=== PATIENT | female | born 1960 | race African-American/Black ===

== ENCOUNTER 2021-10-20 22:03 | Emergency (ER) | payer BC ==
[~2021-10-20] VITALS: Ht 152.4 cm; Wt 113.0 kg
[2021-10-20] VITALS (11 sets, daily range): BP systolic 190–235; BP diastolic 106–125
[~2021-10-20 22:03] MED LIST: AMOXICILLIN875 MG PO; BENADRYL 50MG C50 MG PO; ENOXAPARIN40 MG/0.1 SC; HYDROCHLOROT12.5 M1 OR; HYDROCHLOROT25 MG PO; LISINOP/HCTZ1 TA1 PO; LOPRESSOR 550 MG/TAB PO; MEDDOSEPAK PO; METFORMIN1000 MG PO; METOPRL/HCTZ1 TA1 PO; MUPIROCIN2 % NAB; NORCO1 TA1 PO; NORVASC5 MG OR; PEPCID20 MG PO; SMZ-TMP DS1 TAB PO
[2021-10-20 22:52] LABS: IMMATURE GRANULOCYTES 0.1 % (0.0-5.0); MEAN CORPUSCULAR HGB 24.1 pG CALC (26.0-32.0); MEAN CORPUSCULAR HGB CONC 30.4 g/dL CAL (32.0-36.0); NEUT# 4.55 thou/uL (2.00-7.15); RED BLOOD COUNT 5.68 mill/uL (4.20-5.60); RED CELL DISTRI WIDTH 15.3 % (11.5-15.5)
[2021-10-20 22:53] LABS: HEMATOCRIT 45.1 % (37.0-47.0); HEMOGLOBIN 13.7 g/dl (12.0-16.0); MEAN CELL VOLUME 79.4 fL CALC (80.0-100.0)
[2021-10-20 23:04] LABS: ALBUMIN 4.6 g/dL (3.2-5.0); ALKALINE PHOSPHATASE 105 u/l (38-126); ANION GAP 11 (6-22 (CALC)); BUN 13 mg/dL (7-17); BUN/CREATININE RATIO 18 (12-20 (CALC)); CARBON DIOXIDE 28 mmol/l (22-30); CHLORIDE 106 mmol/l (95-108); CREATININE 0.7 mg/dL (0.5-1.0); GFR > 60 ML/MIN (>=60 (CALC)); GFR FOR AFR.AMER. > 60 ML/MIN (>=60 (CALC)); POTASSIUM 3.6 mmol/l (3.5-5.1); SGOT/AST 28 u/l (14-36); SODIUM 142 mmol/l (137-146); TOTAL PROTEIN 8.3 g/dL (6.3-8.2)
[2021-10-20 23:07] LABS: PROTHROMBIN TIME 10.6 SECONDS (9.0-12.5)
[2021-10-20 23:09] LABS: BILIRUBIN, TOTAL 0.5 mg/dL (0.0-1.4)
[2021-10-21] VITALS (13 sets, daily range): BP systolic 163–199; BP diastolic 99–119
[2021-10-21 00:14] LABS: URINE BILIRUBIN - DIPSTICK NEGATIVE (NEGATIVE); URINE BLOOD DIPSTICK LARGE (NEGATIVE); URINE COLOR YELLOW; URINE GLUCOSE - DIPSTICK NEGATIVE (NEGATIVE); URINE KETONE NEGATIVE (NEGATIVE); URINE LEUK ESTERASE TRACE (NEGATIVE); URINE SPECIFIC GRAVITY 1.015; URINE UROBILINOGEN - DIPSTICK 0.2 E.U./dL (0.2)
[2021-10-21 00:16] LABS: URINE NITRITE - DIPSTICK NEGATIVE (Negative)
[2021-10-21 00:17] LABS: URINE PROTEIN - DIPSTICK NEGATIVE (NEG-TRACE)
[2021-10-21 00:19] LABS: URINE BACTERIA FEW hpf; URINE EPITHELIAL CELLS MODERATE EPI/hpf (0-FEW); URINE RBC 25-50 RBC/hpf (0-5)
== END 2021-10-21 00:54 | disposition short-term general hospital (02) | DRG 999 ==
LOC: ED 22:03
PROVIDERS: Emergency Medicine
DX: I63.89 Other cerebral infarction (principal); S06.379A Contusion, laceration, and hemorrhage of cerebellum with loss of consciousness of unspecified duration, initial encounter; R53.1 Weakness; R47.81 Slurred speech; S00.93XA Contusion of unspecified part of head, initial encounter; I10 Essential (primary) hypertension; R29.705 NIHSS score 5; W19.XXXA Unspecified fall, initial encounter; R29.810 Facial weakness
CPT/HCPCS: Q9967

== ENCOUNTER 2021-11-03 23:20 | Emergency (ER) | payer BC ==
[~2021-11-03] VITALS: Ht 152.4 cm; Wt 106.8 kg
[2021-11-03 23:34] VITALS: BP 195/95
[2021-11-03 23:41] VITALS: BP 170/87
[2021-11-03 23:51] VITALS: BP 163/87
[2021-11-04 00:01] VITALS: BP 164/82
[2021-11-04 00:20] VITALS: BP 145/86
[2021-11-04 00:25] LABS: HEMATOCRIT 45.7 % (37.0-47.0); HEMOGLOBIN 13.8 g/dl (12.0-16.0); IMMATURE GRANULOCYTES 0.1 % (0.0-5.0); MEAN CELL VOLUME 79.9 fL CALC (80.0-100.0); MEAN CORPUSCULAR HGB 24.1 pG CALC (26.0-32.0); MEAN CORPUSCULAR HGB CONC 30.2 g/dL CAL (32.0-36.0); NEUT# 3.11 thou/uL (2.00-7.15); RED BLOOD COUNT 5.72 mill/uL (4.20-5.60); RED CELL DISTRI WIDTH 14.8 % (11.5-15.5)
[2021-11-04 00:25] LABS: URINE BILIRUBIN - DIPSTICK NEGATIVE (NEGATIVE); URINE BLOOD DIPSTICK MODERATE (NEGATIVE); URINE COLOR YELLOW; URINE GLUCOSE - DIPSTICK NEGATIVE (NEGATIVE); URINE KETONE NEGATIVE (NEGATIVE); URINE PROTEIN - DIPSTICK NEGATIVE (NEG-TRACE); URINE SPECIFIC GRAVITY 1.015; URINE UROBILINOGEN - DIPSTICK 0.2 E.U./dL (0.2)
[2021-11-04 00:27] LABS: URINE LEUK ESTERASE NEGATIVE (NEGATIVE); URINE NITRITE - DIPSTICK NEGATIVE (Negative)
[2021-11-04 00:31] VITALS: BP 139/80
[2021-11-04 00:31] LABS: URINE RBC 50-100 RBC/hpf (0-5)
[2021-11-04 00:32] LABS: URINE BACTERIA FEW hpf; URINE EPITHELIAL CELLS FEW EPI/hpf (0-FEW)
[2021-11-04 00:37] LABS: ALBUMIN 4.6 g/dL (3.2-5.0); ALKALINE PHOSPHATASE 90 u/l (38-126); ANION GAP 15 (6-22 (CALC)); BILIRUBIN, TOTAL 0.5 mg/dL (0.0-1.4); BUN 22 mg/dL (7-17); BUN/CREATININE RATIO 21 (12-20 (CALC)); CARBON DIOXIDE 26 mmol/l (22-30); CHLORIDE 105 mmol/l (95-108); CREATININE 1.1 mg/dL (0.5-1.0); GFR 51 ML/MIN (>=60 (CALC)); GFR FOR AFR.AMER. > 60 ML/MIN (>=60 (CALC)); POTASSIUM 4.3 mmol/l (3.5-5.1); SGOT/AST 41 u/l (14-36); SODIUM 142 mmol/l (137-146); TOTAL PROTEIN 8.4 g/dL (6.3-8.2)
[2021-11-04 00:46] VITALS: BP 141/85
[2021-11-04 00:49] LABS: MYOGLOBIN 38 ng/mL (0 - 62)
[2021-11-04 01:04] VITALS: BP 141/85
== END 2021-11-04 00:13 | disposition home or self-care (01) | DRG 305 ==
LOC: ED 23:20
PROVIDERS: Emergency Medicine
DX: I10 Essential (primary) hypertension (principal); Z86.73 Personal history of transient ischemic attack (TIA), and cerebral infarction without residual deficits

== ENCOUNTER 2024-06-17 06:40 | Observation (INO) | payer OTHER ==
[2024-06-17] VITALS (26 sets, daily range): BP systolic 56–175; BP diastolic 30–107
[~2024-06-17] VITALS: Ht 274.3 cm; Wt 115.8 kg
[~2024-06-17 06:40] MED LIST changes: +METHOCARBAMOL500 MG PO; +NAPROXEN500 MG PO
--- NOTE | 2024-06-17 06:45 | NUR ---
PTIENT BROUGHT TO ROOM 13 FROM THE LOBBY. PATIENT HAS C/O SOB FOR SEVERAL MONTHS. PATIENT HAS PLUS 4 EDEMA TO BILATERAL LOWER EXTREMITIES. PATIENT IN NO APPARENT DISTRESS.
--- NOTE | 2024-06-17 06:46 | NUR ---
pt to room via wc
[2024-06-17] MEDS ORDERED: FUROSEMIDE 40 MG/4 ML SDV IV ONE (07:15)
[2024-06-17 07:47] LABS: BASO% 0.2 % (0-3); EOS% 1.3 % (0-8); IMMATURE GRANULOCYTES 0.2 % (0.0-5.0); LYMPH% 33.5 % (15-41); MEAN CELL VOLUME 76.4 fL CALC (80.0-100.0); MEAN CORPUSCULAR HGB 22.6 pG CALC (26.0-32.0); MEAN CORPUSCULAR HGB CONC 29.6 g/dL CAL (32.0-36.0); MONO% 10.9 % (2-13); NEUT# 3.27 thou/uL (2.00-7.15); NEUT% 53.9 % (42-76); RED BLOOD COUNT 4.74 mill/uL (4.20-5.60); RED CELL DISTRI WIDTH 14.8 % (11.5-15.5)
[2024-06-17 07:48] LABS: HEMATOCRIT 36.2 % (37.0-47.0); HEMOGLOBIN 10.7 g/dl (12.0-16.0)
[2024-06-17 08:00] LABS: ALKALINE PHOSPHATASE 109 u/l (38-126); ANION GAP 12 (6-22 (CALC)); BUN 17 mg/dL (8-23); BUN/CREATININE RATIO 20 (12-20 (CALC)); CARBON DIOXIDE 25 mmol/l (22-30); CHLORIDE 109 mmol/l (95-108); CREATININE 0.8 mg/dL (0.5-1.0); ESTIMATED GFR 83 ML/MIN (>=90 (CALC)); POTASSIUM 4.2 mmol/l (3.5-5.1); SGOT/AST 33 u/l (9-36); SODIUM 142 mmol/l (137-146); TOTAL PROTEIN 7.3 g/dL (6.3-8.2)
--- NOTE | 2024-06-17 08:08 | NUR ---
PATIENT ASSESSED BY DR. WHITMAN. LASIX 40MG GIVEN IVP. PUREWIK IN PLACE FOR PATIENTS COMFORT.
[2024-06-17] MEDS ORDERED: [UNRECOGNIZED DRUG - OTHER] PO (08:15)
[2024-06-17] MEDS ORDERED: AMIODARONE HYD200 MG PO (08:16)
[2024-06-17] MEDS ORDERED: ALDACTONE50 MG PO (08:16)
[2024-06-17] MEDS ORDERED: ATORVASTATIN CA40 MG PO (08:19)
[2024-06-17] MEDS ORDERED: OZEMPIC2 MG (08:20)
[2024-06-17] MEDS ORDERED: XARELTO20 MG PO (08:20)
[2024-06-17] MEDS ORDERED: ACETAMINOPHEN 325 MG/TAB PO PRN (08:40)
[2024-06-17] MEDS ORDERED: MAGNESIUM HYDROXIDE 30 ML UDC PO PRN (08:40)
--- NOTE | 2024-06-17 08:59 | NUR ---
SINCE LASIX PROVIDED PATIENT HAS VOIDED @ 800CC OF CLEAR YELLOW URINE.
--- NOTE | 2024-06-17 09:22 | NUR ---
ADMISSION MEDICATIONS ORDERED FOR PATIENT. MEDS NOT AVAILABLE IN ER [facility]. [facility] CONTACTED AND THEY ARE TO BRING PATIENTS MEDICATION.
[2024-06-17] MEDS ORDERED: SPIRONOLACTONE 25 MG/TAB PO SCH (09:30)
[2024-06-17] MEDS ORDERED: AMIODARONE 200 MG/TAB PO SCH (09:30)
[2024-06-17] MEDS ORDERED: ATORVASTATIN CALCIUM 40 MG/TAB PO SCH (09:30)
--- NOTE | 2024-06-17 10:01 | NUR ---
PATIENT MEDICATED WITH HER MORNING MEDS, AMIODERONE, ALDACTONE AND ATORVASTIN. PATIENT IN NO DISTRESS. PATIENT STATES SHE FEELS MUCH BETTER. AN ADDITIONAL 900ML OF CLEAR URINE VOIDED WITH PUREWIK ASSIST.
--- NOTE | 2024-06-17 11:30 | NUR ---
PATIENT VOIDED AN ADDITIONAL 100OML OF CLEAR YELLOW URINE. ADMIT ORDERS RECIEVED. CALLING NURSE TO GIVE VERBAL REPORT.
--- NOTE | 2024-06-17 12:35 | NUR ---
Report received from YANIRA Bartholomew. Care assumed.
--- NOTE | 2024-06-17 12:55 | NUR ---
PT ARRIVED TO THE UNIT VIA WC, PT AMBULATED FROM THE WC TO THE BEDSIDE SCALE AND TO THE BED WITH A SLOW STEADY GAIT, PT IS A&O X 3 PUPILS PERRL, RESP. EVEN AND UNLABORED, LUNG SOUNDS ARE CLEAR, NORMAL S1 S2 HEART SOUNDS, TELE MONITOR IN PLACE, ABD DISTENDED AND SOFT WITH ACTIVE BOWEL SOUNDS, STRONG RADIAL PULSES, WEAK PEDAL PULSES, 4+ EDEMA IN BLE, 20G RAC IV SL, PT ORIENTED TO ROOM AND CALL AGUIRRE SYSTEM, SAFETY MEASURES INTRODUCED, CALL AGUIRRE WITHIN REACH
--- NOTE | 2024-06-17 12:57 | NUR ---
PT TO FLOOR VIA WC
[2024-06-17] MEDS ORDERED: FUROSEMIDE 40 MG/4 ML SDV IV SCH (14:00)
[2024-06-17] MEDS ORDERED: RIVAROXABAN 20 MG TAB PO SCH (17:00)
--- NOTE | 2024-06-17 20:00 | NUR ---
RECEIVED REPORT FROM NURSE ROSEMARY, PATIENT RESTING IN BED, FAMILY IN ROOM, PATIENT ALERT ORIENTED, ON TELEMTRY, PATIENT SALINE LOCK NOTED ON RAC PATENT FLUSHES WELL, PATIENT CLEAR LUNG SOUNDS, EDEMA NOTED ON BLE +2, PATIENT ON PUREWICK DRAINED 900 CC OF CLEAR YELLOW URINE,DENIES PAIN OR DISCOMFORTS AT THIS TIME, CALL LIGHT WITHIN REACHED.
--- NOTE | 2024-06-17 22:12 | NUR ---
CALLED PURIFICATION OPERATOR HELPER BP 184/78 HR 74, IV HYDRALAZINE GIVEN, STILL ELEVATED, NEW ORDER FOPR LABETALOL IV, FAX TO .
--- NOTE | 2024-06-18 00:43 | NUR ---
PATIENT REWSTING IN BED, WATCHING TV, NO DISCOMFORTS NOTED AT THSI TIME, BREATHING UNLABORED CALL LIGHT WITHIN REACHED.
[2024-06-18 03:59] VITALS: BP 130/65
--- NOTE | 2024-06-18 05:09 | NUR ---
PATIENT WEIGHT USING STANDING SCALE, ASSISTED BACK IN BED, NO DISCOMFORTS NOTED CALL LIGT WITHIN REACHED.
[2024-06-18 05:36] LABS: BASO% 0.5 % (0-3); EOS% 1.2 % (0-8); HEMATOCRIT 34.5 % (37.0-47.0); HEMOGLOBIN 10.4 g/dl (12.0-16.0); IMMATURE GRANULOCYTES 0.2 % (0.0-5.0); LYMPH% 30.3 % (15-41); MEAN CORPUSCULAR HGB 22.6 pG CALC (26.0-32.0); MEAN CORPUSCULAR HGB CONC 30.1 g/dL CAL (32.0-36.0); NEUT# 3.21 thou/uL (2.00-7.15); NEUT% 54.8 % (42-76); RED BLOOD COUNT 4.6 mill/uL (4.20-5.60); RED CELL DISTRI WIDTH 14.7 % (11.5-15.5)
[2024-06-18 05:49] LABS: ALBUMIN 3.5 g/dL (3.2-5.0); BILIRUBIN, TOTAL 1.1 mg/dL (0.02-1.3); CREATININE 0.9 mg/dL (0.5-1.0); MAGNESIUM 1.7 mg/dL (1.6-2.3); POTASSIUM 3.8 mmol/l (3.5-5.1); TOTAL PROTEIN 6.3 g/dL (6.3-8.2)
[2024-06-18 06:51] VITALS: BP 123/50
[2024-06-18] MEDS ORDERED: GUAIFENESIN 200 MG/10 ML UDC PO PRN (07:55)
--- NOTE | 2024-06-18 07:56 | NUR ---
PT IS AOX4, RESPIRATIONS ARE EVEN AND UNLABORED SITTING UP IN BED, PT DOES COMPLAIN OF A COUGH SHE DISCUSSED WITH DOCTOR, LUNGS ARE DIMAT BIATERAL LOWER LOBES, BILATERAL UPPER LOBES ARE CLEAR, BOWEL SOUNDS ARE ACTIVE, PEDAL PULSES ARE PALPABLE TO TOUCH WITH +2 PITTING EDEMA, PT DENIES PAIN AT THIS TIME.
[2024-06-18] MEDS ORDERED: NEBIVOLOL 10 MG PO SCH (09:00)
[2024-06-18] MEDS ORDERED: PATIENT' OWN MED 1 EA DOSE PO SCH (09:00)
[2024-06-18 10:09] VITALS: BP 105/52
--- NOTE | 2024-06-18 13:54 | NUR ---
PT WITH NO COMPLAINTS, SITTING UP IN BED VISITING WITH FAMILY AT THIS TIME.
[2024-06-18 16:19] VITALS: BP 120/68
[2024-06-18 19:03] VITALS: BP 132/76
--- NOTE | 2024-06-18 20:00 | NUR ---
RECEIVED REPORT FROM NURSE ARAYA, PATIENT RSETING IN BED, WATCHING TV, FAMILY IN ROOM, SALINE LOCK NOTED ON RAC G 20 PATENT FLSUHES WELL, DENIES PAIN AT THIS TIME, COUGHING NOTED NOT PRODUCTIVE, CLEAR LUNG SOUNDS, EDEMA NOTE DON BILAT LOWER LEGS +2 PITTING EDEMA, PATIENT ON PUREWICK DRAINING YELLOW CLEAR URINEM BREATHING UNLABORED CALL LIGHT WITH REACHED.
--- NOTE | 2024-06-18 22:00 | NUR ---
PATIENT IV FLUSHES WELL, PATIENT WAS REQUESTING IV TO BE CHANGED EARLIER THIS SHIFT BECAUSE IT BOTHERED HER, CHANGES MINDS AND WANTS TO KEEP IT AND WILL WAIT TOMORROW IF POSSIBLE DISCHARGE.
[2024-06-18 23:52] VITALS: BP 115/52
--- NOTE | 2024-06-19 | NUR ---
PATIENT BREATHING EVEN UNALBORED, NO DISCOMFORTS NOTED AT THIS TIME, CALL LIGHT WITHIN REACHED.
[2024-06-19 03:58] VITALS: BP 126/69
--- NOTE | 2024-06-19 04:00 | NUR ---
PATIENT RESTING WITH EYES CLOSED, BREATHING EVEN UNLABORED, NO DISCOMFORTS NOTED AT THIS TIME, CALL LIGHT WITHIN REACHED.
[2024-06-19 05:12] LABS: HEMATOCRIT 34.7 % (37.0-47.0); HEMOGLOBIN 10.8 g/dl (12.0-16.0); MEAN CELL VOLUME 75.4 fL CALC (80.0-100.0); MEAN CORPUSCULAR HGB 23.5 pG CALC (26.0-32.0); MEAN CORPUSCULAR HGB CONC 31.1 g/dL CAL (32.0-36.0); RED BLOOD COUNT 4.6 mill/uL (4.20-5.60); RED CELL DISTRI WIDTH 14.7 % (11.5-15.5)
[2024-06-19 05:24] LABS: ALBUMIN 3.4 g/dL (3.2-5.0); BILIRUBIN, TOTAL 0.7 mg/dL (0.02-1.3); CREATININE 0.9 mg/dL (0.5-1.0); MAGNESIUM 1.9 mg/dL (1.6-2.3); POTASSIUM 4.2 mmol/l (3.5-5.1); TOTAL PROTEIN 6.2 g/dL (6.3-8.2)
--- NOTE | 2024-06-19 05:58 | NUR ---
FUE ALSIX GIVEN, PATIENT WEIGHED USING STANDING SCALE,
[2024-06-19 07:06] VITALS: BP 130/69
--- NOTE | 2024-06-19 07:20 | NUR ---
PT IS AOX4, RESPIRATIONS ARE EVEN AND UNLABORED ON ROOM AIR, LUNGS ARE CLEAR THROUGHOUT, BOWEL SOUNDS ARE ACTIVE, PEDAL PULSES ARE PALPABLE TO TOUCH WITH +1 NON PITTING EDEMA NOTED TO THE RIGHT FOOT AND +2 PITTING EDEMA NOTED TO LEFT FOOT, WILL BRING PT PILLOW TO ELEVATE FEET, PT DENIES PAIN AT THIS TIME.
[2024-06-19 11:01] VITALS: BP 122/64
[2024-06-19] MEDS ORDERED: LASIX 40 MG TAB40 MG PO (13:03)
[2024-06-19] MEDS ORDERED: SPIRONOLACT25 MG PO (13:04)
--- NOTE | 2024-06-19 14:00 | NUR ---
reviewed discharge instructions with pt, removed iv and placed it in the return bin at nurses station, removed iv. gave pt a copy of the printed scripts.
--- NOTE | 2024-06-24 12:49 | NUR ---
Discharge follow up call completed 06/24/24. Patient states she is doing well since discharge. Patient is taking regular medications but is taking dosages directed at discharge. Patient has seen her PCP for follow up and plans to contact her scroll machine operator today to schedule a follow up appointment. No needs or concerns verbalized at this time.
== END 2024-06-19 14:10 | disposition home or self-care (01) ==
LOC: ED 06:40 → ED-I 08:15 → ED 08:37 → MS2 08:38
PROVIDERS: Family Medicine; Nurse Practitioner Family; ADMIT Internal Medicine; ATTEND Internal Medicine
DX: I11.0 Hypertensive heart disease with heart failure (principal); I50.23 Acute on chronic systolic (congestive) heart failure; I48.91 Unspecified atrial fibrillation; I48.92 Unspecified atrial flutter; E78.5 Hyperlipidemia, unspecified; Z86.73 Personal history of transient ischemic attack (TIA), and cerebral infarction without residual deficits; Z87.891 Personal history of nicotine dependence; Z95.810 Presence of automatic (implantable) cardiac defibrillator; Z79.01 Long term (current) use of anticoagulants
CPT/HCPCS: J1940